=== PATIENT | male | born 2000 | race Caucasian/White ===

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

== ENCOUNTER 2022-06-20 18:58 | Emergency (ER) | payer OTHER ==
[~2022-06-20] VITALS: Ht 175.3 cm; Wt 81.6 kg
[2022-06-20 19:50] VITALS: BP 132/70
--- NOTE | 2022-06-20 19:50 | NUR ---
BIBSELF C/O COUGH AND Dry mouth SINCE WEDNESDAY .PT A/OX3. TOLERATING R/A WELL WITH NO SOB. AMB WITH STEADY GAIT.
--- NOTE | 2022-06-20 20:57 | NUR ---
Patient discharged to home in stable condition. Written and verbal after care instructions given. Patient verbalizes understanding of instruction. PT ambulatory with a steady gait
== END 2022-06-20 20:58 | disposition home or self-care (01) ==
LOC: ER 19:03
DX: J02.8 Acute pharyngitis due to other specified organisms (principal); R05.9 Cough, unspecified